=== PATIENT | male | born 1960 | race Two or more races ===

== ENCOUNTER 2023-09-02 | Emergency (ER) | payer OTHER ==
[~2023-09-02] VITALS: Ht 175.3 cm; Wt 76.2 kg
[2023-09-02] MEDS ORDERED: KETO10TA2 PO (02:42)
== END 2023-09-02 03:07 | disposition home or self-care (01) ==
LOC: ER 00:01
DX: S52.124A Nondisplaced fracture of head of right radius, initial encounter for closed fracture (principal); S62.102A Fracture of unspecified carpal bone, left wrist, initial encounter for closed fracture; S00.93XA Contusion of unspecified part of head, initial encounter; S40.011A Contusion of right shoulder, initial encounter; W05.1XXA Fall from non-moving nonmotorized scooter, initial encounter; Y93.89 Activity, other specified; Y92.89 Other specified places as the place of occurrence of the external cause; Y99.9 Unspecified external cause status